=== PATIENT | male | born 1945 | race Caucasian/White ===

== ENCOUNTER 2016-08-02 18:38 | Emergency (ER) | payer MEDICARE, BC ==
[2016-08-02 19:11] VITALS: PULSE 68; RESP 18; TEMP 97.7
[2016-08-02 19:34] LABS: BASOPHILS % (AUTO) 1 % (0-3); EOSINOPHILS % (AUTO) 2 % (0-9); HEMATOCRIT 44 % (39-53); MEAN CORPUSCULAR VOLUME 93 fL (80-100); MONOCYTES % (AUTO) 12.7 % (0-12); NEUTROPHILS % (AUTO) 54.7 % (37-80)
[2016-08-02 22:06] VITALS: BP 149/70; O2SAT 94
== END 2016-08-02 20:21 | disposition home or self-care (01) | DRG 395 ==
LOC: ED 18:38
DX: K64.5 Perianal venous thrombosis (principal)
CPT/HCPCS: 36415; 85025; 99283

== ENCOUNTER 2016-08-03 06:00 | Day surgery (SDC) | payer MEDICARE, BC ==
[2016-08-03] MEDS ORDERED: PROPOFOL 10 MG/ML EMU IV ONE ×2 (06:15→07:25)
[2016-08-03] MEDS ORDERED: ONDANSETRON HCL 4 MG/2 ML SOL ONE ×2 (06:15→07:25)
[2016-08-03] MEDS ORDERED: LIDOCAINE HCL 1% MPF SOL ONE ×2 (06:15→07:25)
[2016-08-03] MEDS ORDERED: FENTANYL 100MCG/2ML SOL ONE (06:16)
[2016-08-03] MEDS ORDERED: MIDAZOLAM 2 MG/2 ML SOL ONE (06:16)
[2016-08-03] MEDS ORDERED: SUCCINYLCHOLINE CHLORIDE 20 MG/ML SOL IV ONE (06:17)
[2016-08-03] MEDS ORDERED: BUPIVACAINE LIPOSOME 20 ML SUS ONE (06:17)
[2016-08-03 06:24] VITALS: BP 129/69; PULSE 65; RESP 22; TEMP 97.6; O2SAT 95
== END 2016-08-03 07:55 | disposition home or self-care (01) | DRG 379 ==
LOC: SURG 06:00
PROVIDERS: ATTEND Surgery
DX: K62.5 Hemorrhage of anus and rectum (principal)
CPT/HCPCS: J0330; J2250; J2405; J3010; J2001; J2704

== ENCOUNTER 2016-10-05 07:23 | Day surgery (SDC) | payer MEDICARE, BC ==
[2016-10-05] MEDS ORDERED: PROPOFOL 500 MG/50 ML EMU IV ONE (07:47)
[2016-10-05] MEDS ORDERED: LIDOCAINE HCL 1% MPF SOL ONE (07:47)
[2016-10-05 08:44] VITALS: PULSE 64
[2016-10-05 08:53] VITALS: BP 114/63; RESP 18; TEMP 97; O2SAT 94
== END 2016-10-05 09:10 | disposition home or self-care (01) | DRG 394 ==
LOC: SURG 07:23
PROVIDERS: ATTEND Surgery
DX: K55.039 Acute (reversible) ischemia of large intestine, extent unspecified (principal); K63.3 Ulcer of intestine; D12.2 Benign neoplasm of ascending colon
CPT/HCPCS: 99001; J2001; J2704

== ENCOUNTER 2017-02-01 17:14 | Emergency (ER) | payer MEDICARE, BC ==
[2017-02-01] MEDS ORDERED: SODIUM CHLORIDE 0.9% FLUSH 10 ML SOL IV PRN (17:48)
[2017-02-01] MEDS ORDERED: NITROGLYCERIN 0.4 MG TAB SL PRN (17:48)
[2017-02-01] MEDS ORDERED: ASPIRIN 81 MG CHEWABLE CTB PO STA (17:48)
[2017-02-01] MEDS ORDERED: ASPIRIN 81 MG CHEWABLE CTB ONE (17:50)
[2017-02-01] MEDS ORDERED: SODIUM CHLORIDE 0.9% 500 ML 500 ML IV ONE (17:53)
[2017-02-01] MEDS ORDERED: KETOROLAC TROMETHAMINE 30 MG/ML SOL IV ONE (17:53)
[2017-02-01 17:59] LABS: BASOPHILS % (AUTO) 1 % (0-3); EOSINOPHILS % (AUTO) 2 % (0-9); HEMATOCRIT 47 % (39-53); MEAN CORPUSCULAR HGB CONC 33.7 gm/dl (32.0-36.0); MONOCYTES % (AUTO) 17.9 % (0-12); NEUTROPHILS % (AUTO) 40.8 % (37-80)
[2017-02-01 18:02] LABS: MEAN CORPUSCULAR VOLUME 100 fL (80-100)
[2017-02-01 18:15] LABS: CALCIUM 8.6 mg/dl (8.5-10.1); GLOM FILT RATE 47 mL/min (>60); POTASSIUM 4.6 mMol/L (3.5-5.1); SODIUM 137 mMol/L (136-145)
[2017-02-01] MEDS ORDERED: KETOROLAC TROMETHAMINE 30 MG/ML SOL ONE (18:24)
[2017-02-01 18:59] VITALS: BP 133/80; PULSE 76; RESP 20; TEMP 98; O2SAT 92
== END 2017-02-01 18:54 | disposition home or self-care (01) | DRG 313 ==
LOC: ED 17:14
DX: R07.89 Other chest pain (principal); E86.0 Dehydration; J06.9 Acute upper respiratory infection, unspecified; M94.0 Chondrocostal junction syndrome [Tietze]
CPT/HCPCS: 36415; 71010; 80048; 82550; 83880; 84484; 85025; 85610; 85730; 93005; 99285; J1885

== ENCOUNTER 2017-02-27 23:36 | Emergency (ER) | payer MEDICARE, BC ==
[2017-02-27 23:51] VITALS: TEMP 97.6
[2017-02-27 23:51] LABS: BASOPHILS % (AUTO) 1 % (0-3); EOSINOPHILS % (AUTO) 2 % (0-9); HEMATOCRIT 44 % (39-53); MEAN CORPUSCULAR HGB CONC 35.3 gm/dl (32.0-36.0); MEAN CORPUSCULAR VOLUME 97 fL (80-100); MONOCYTES % (AUTO) 14.6 % (0-12); NEUTROPHILS % (AUTO) 46.3 % (37-80)
[2017-02-28] LABS: NORMAL RBCS PRESENT
[2017-02-28 00:03] VITALS: BP 124/87; PULSE 87; RESP 18; O2SAT 96
[2017-02-28 00:07] LABS: CALCIUM 8.9 mg/dl (8.5-10.1); GLOM FILT RATE 44 mL/min (>60); POTASSIUM 4.7 mMol/L (3.5-5.1); SODIUM 141 mMol/L (136-145)
[2017-02-28] MEDS ORDERED: FAMOTIDINE 20 MG TAB PO ONE (00:45)
[2017-02-28] MEDS ORDERED: FAMOTIDINE 20 MG TAB ONE (00:47)
== END 2017-02-28 00:56 | disposition home or self-care (01) | DRG 313 ==
LOC: ED 23:36
DX: R07.9 Chest pain, unspecified (principal); K21.9 Gastro-esophageal reflux disease without esophagitis; Z86.69 Personal history of other diseases of the nervous system and sense organs; Z95.1 Presence of aortocoronary bypass graft
CPT/HCPCS: 80048; 82550; 84484; 85025; 85610; 93005; 99283

== ENCOUNTER 2017-03-02 23:33 | Emergency (ER) | payer MEDICARE, BC ==
[2017-03-02] MEDS ORDERED: LIDOCAINE HCL 2% (VISCOUS) 20 ML SOL MT ONE ×2 (23:34→23:56)
[2017-03-02] MEDS ORDERED: ALUMINUM/MAGNESIUM 30 ML SUS PO ONE ×2 (23:34→23:56)
[2017-03-02] MEDS ORDERED: ALUMINUM/MAGNESIUM 30 ML SUS ONE ×2 (23:35→23:59)
[2017-03-02] MEDS ORDERED: LIDOCAINE HCL 2% (VISCOUS) 20 ML SOL ONE (23:35)
[2017-03-02 23:42] VITALS: RESP 18; TEMP 98.5
[2017-03-02] MEDS ORDERED: APAP/HYDROCODONE 325/7.5 TAB PO PRN (23:54)
[2017-03-02] MEDS ORDERED: APAP/HYDROCODONE 325/5 TAB ONE (23:59)
[2017-03-03] MEDS ORDERED: LIDOCAINE HCL 2% (VISCOUS) 20 ML SOL ONE
[2017-03-03] MEDS ORDERED: APAP/HYDROCODONE 325/5 TAB PO ONE (00:03)
[2017-03-03] MEDS ORDERED: NITROGLYCERIN 0.4 MG TAB SL ONE (00:50)
[2017-03-03] MEDS: NITROGLYCERIN 0.4 MG TAB SL PRN ×2 (00:50→00:58)
[2017-03-03 01:15] VITALS: BP 169/156; PULSE 98; O2SAT 100
== END 2017-03-03 01:09 | disposition home or self-care (01) | DRG 392 ==
LOC: ED 23:33
DX: K21.9 Gastro-esophageal reflux disease without esophagitis (principal); Z95.1 Presence of aortocoronary bypass graft
CPT/HCPCS: 93005; 99283; 99284; A9270-GY

== ENCOUNTER 2017-03-07 19:47 | Emergency (ER) | payer MEDICARE, BC ==
[2017-03-07] MEDS ORDERED: ALTEPLASE, RECOMBINANT 50 MG PDS IV ONE ×3 (20:08→20:12)
[2017-03-07] MEDS ORDERED: SODIUM CHLORIDE 0.9% FLUSH 10 ML SOL IV PRN (20:12)
[2017-03-07] MEDS ORDERED: ONDANSETRON HCL 4 MG/2 ML SOL IV ONE (20:18)
[2017-03-07] MEDS ORDERED: ONDANSETRON HCL 4 MG/2 ML SOL ONE (20:19)
[2017-03-07 20:24] LABS: CALCIUM 8.6 mg/dl (8.5-10.1); POTASSIUM 4.8 mMol/L (3.5-5.1)
[2017-03-07 20:25] LABS: APPEARANCE,URINE Clear; BILIRUBIN,URINE NEGATIVE (NEGATIVE); COLOR,URINE Yellow; GLUCOSE, URINE (UA) NEGATIVE (NEGATIVE); KETONES,URINE NEGATIVE (NEGATIVE); LEUKOCYTE ESTERASE ,URINE NEGATIVE (NEGATIVE); NITRATE,URINE NEGATIVE (NEGATIVE); OCCULT BLOOD,URINE NEGATIVE (NEG-TRACE); UROBILINOGEN,URINE 0.2 (0.2-1.0 EU)
[2017-03-07 20:28] LABS: BASOPHILS % (AUTO) 1 % (0-3); EOSINOPHILS % (AUTO) 2 % (0-9); HEMATOCRIT 45 % (39-53); MEAN CORPUSCULAR HGB CONC 34.6 gm/dl (32.0-36.0); MEAN CORPUSCULAR VOLUME 95 fL (80-100); MONOCYTES % (AUTO) 16.2 % (0-12); NEUTROPHILS % (AUTO) 40.8 % (37-80)
[2017-03-07] MEDS ORDERED: SODIUM CHLORIDE 0.9% 1000ML 1,000 ML IV SCH ×2 (20:30→21:17)
[2017-03-07 20:52] LABS: RBC,URINE 0-1 (0-3AV/HPF); WBC,URINE 0-2 (0-5AV/HPF)
[2017-03-07 20:56] VITALS: RESP 22; TEMP 98.4
[2017-03-07 21:23] VITALS: PULSE 98; O2SAT 94
[2017-03-07 21:41] VITALS: BP 106/64
== END 2017-03-07 21:36 | disposition short-term general hospital (02) | DRG 65 ==
LOC: ED 19:47
DX: I63.9 Cerebral infarction, unspecified (principal); G81.91 Hemiplegia, unspecified affecting right dominant side; F03.90 Unspecified dementia, unspecified severity, without behavioral disturbance, psychotic disturbance, mood disturbance, and anxiety; R47.01 Aphasia; R29.810 Facial weakness; R47.81 Slurred speech; R29.718 NIHSS score 18; R40.2362 Coma scale, best motor response, obeys commands, at arrival to emergency department; R40.2142 Coma scale, eyes open, spontaneous, at arrival to emergency department; R40.2242 Coma scale, best verbal response, confused conversation, at arrival to emergency department
CPT/HCPCS: 70450; 80048; 81001; 85025; 85610; 85730; 93005; 99291; J2405; J2997

== ENCOUNTER 2017-03-17 11:17 | Inpatient (IN) | payer MEDICARE, BC ==
[2017-03-17 11:51] LABS: BASOPHILS % (AUTO) 1 % (0-3); EOSINOPHILS % (AUTO) 0 % (0-9); HEMATOCRIT 42 % (39-53); MEAN CORPUSCULAR HGB CONC 33.3 gm/dl (32.0-36.0); MEAN CORPUSCULAR VOLUME 98 fL (80-100); MONOCYTES % (AUTO) 11.2 % (0-12); NEUTROPHILS % (AUTO) 75.5 % (37-80)
[2017-03-17 12:06] LABS: ALBUMIN 2.7 gm/dl (3.4-5.0); POTASSIUM 4.4 mMol/L (3.5-5.1)
[2017-03-17] MEDS ORDERED: ALBUTEROL/IPRATROPIUM 1 VIAL SOL INH ONE (12:08)
[2017-03-17] MEDS ORDERED: SODIUM CHLORIDE 0.9% 500 ML 500 ML IV ONE (12:11)
[2017-03-17] MEDS ORDERED: SODIUM CHLORIDE 0.9% 1000ML 1,000 ML IV SCH (12:15)
[2017-03-17] MEDS ORDERED: ALBUTEROL/IPRATROPIUM 1 VIAL SOL ONE (12:29)
[2017-03-17] MEDS: SODIUM CHLORIDE 0.9% FLUSH 10 ML SOL IV PRN (13:00)
[2017-03-17 13:01] LABS: APPEARANCE,URINE Slightly Cloudy; BILIRUBIN,URINE NEGATIVE (NEGATIVE); COLOR,URINE Yellow; GLUCOSE, URINE (UA) NEGATIVE (NEGATIVE); KETONES,URINE NEGATIVE (NEGATIVE); LEUKOCYTE ESTERASE ,URINE NEGATIVE (NEGATIVE); NITRATE,URINE NEGATIVE (NEGATIVE); OCCULT BLOOD,URINE 2+ (NEG-TRACE); PH,URINE 5.5
[2017-03-17 13:20] LABS: RBC,URINE 20-25 (0-3AV/HPF); WBC,URINE 0-2 (0-5AV/HPF)
[2017-03-17] MEDS ORDERED: CLINDAMYCIN 150 MG/ML SOL IV ONE (13:44)
[2017-03-17] MEDS ORDERED: LEVOFLOXACIN 25 MG/ML 750 MG in SODIUM CHLORIDE 0.9% 250 ML 150 ML IV ONE (14:07)
[2017-03-17] MEDS ORDERED: CLINDAMYCIN 150 MG/ML 600 MG in SODIUM CHLORIDE 0.9% 100 ML 100 ML IV SCH (14:45)
[2017-03-17] MEDS: SODIUM CHLORIDE 0.9% 1000ML 1,000 ML IV SCH ×2 (15:30→23:25)
[2017-03-17] MEDS ORDERED: SODIUM CHLORIDE 0.9% 250 ML 250 ML IV ONE (16:15)
[2017-03-17] MEDS ORDERED: LEVOFLOXACIN 25 MG/ML SOL IV ONE (16:15)
[2017-03-17] MEDS: LEVOFLOXACIN 25 MG/ML 750 MG in SODIUM CHLORIDE 0.9% 250 ML 150 ML IV SCH (17:14)
[2017-03-17] MEDS: ENOXAPARIN 40 MG SOL SC SCH (17:17)
[2017-03-17] MEDS: ALBUTEROL/IPRATROPIUM 1 VIAL SOL INH SCH ×2 (17:21→21:45)
[2017-03-17] MEDS ORDERED: ALBUTEROL/IPRATROPIUM 1 VIAL SOL INH PRN (18:43)
[2017-03-17] MEDS: ALBUTEROL NEB SOL 2.5MG/3ML 1 VIAL SOL NEB PRN (19:46)
[2017-03-17] MEDS ORDERED: RANITIDINE HCL 150 MG TAB PO SCH (21:00)
[2017-03-17] MEDS ORDERED: SCOPOLAMINE 1.5MG PATCH TD SCH (21:00)
[2017-03-17] MEDS ORDERED: FAMOTIDINE 20 MG TAB PO SCH (21:00)
[2017-03-17] MEDS ORDERED: TAMSULOSIN HYDROCHLORIDE 0.4 MG CAP PO SCH (21:00)
[2017-03-17] MEDS ORDERED: DIVALPROEX 250 MG TCP PO SCH (21:00)
[2017-03-17] MEDS ORDERED: DIVALPROEX 250 MG TAB.ER.24H PO ONE (21:25)
[2017-03-17] MEDS: QUETIAPINE FUMARATE 25 MG TAB PO SCH (21:50)
[2017-03-17] MEDS: AMIODARONE 200 MG TAB PO SCH (21:55)
[2017-03-18] MEDS ORDERED: CLINDAMYCIN 150 MG/ML 600 MG in SODIUM CHLORIDE 0.9% 100 ML 100 ML IV SCH
[2017-03-18] MEDS: SODIUM CHLORIDE 0.9% 1000ML 1,000 ML IV SCH ×2 (02:57→10:33)
[2017-03-18] MEDS ORDERED: LORAZEPAM 2 MG/ML SOL ONE ×5 (03:40→23:06)
[2017-03-18] MEDS: LORAZEPAM 2 MG/ML 10ML MDV 2 MG/ML VIAL IV PRN ×3 (03:43→23:12)
[2017-03-18] MEDS: ALBUTEROL NEB SOL 2.5MG/3ML 1 VIAL SOL NEB PRN (04:01)
[2017-03-18] MEDS: ENOXAPARIN 40 MG SOL SC SCH ×2 (05:11→17:40)
[2017-03-18] MEDS ORDERED: LORAZEPAM 2 MG/ML 10ML MDV 2 MG/ML VIAL IV ONE (05:30)
[2017-03-18] MEDS: ACETAMINOPHEN 650 MG SUP PR PRN ×2 (05:33→21:28)
[2017-03-18] MEDS ORDERED: OLANZAPINE 5 MG PO SCH (08:30)
[2017-03-18] MEDS ORDERED: OLANZAPINE 2.5 MG TAB ONE (08:43)
[2017-03-18] MEDS: OLANZAPINE 2.5 MG TAB PO PRN ×2 (08:55→21:28)
[2017-03-18] MEDS ORDERED: MEMANTINE HYDROCHLORIDE 10 MG TAB PO SCH (09:00)
[2017-03-18] MEDS ORDERED: FAMOTIDINE 20 MG TAB PO SCH (09:00)
[2017-03-18] MEDS ORDERED: ASPIRIN EC 81 MG PO SCH (09:00)
[2017-03-18] MEDS ORDERED: DIVALPROEX SODIUM PO SCH (09:00)
[2017-03-18] MEDS ORDERED: CLOPIDOGREL 75 MG TAB PO SCH (09:00)
[2017-03-18] MEDS ORDERED: PRAMIPEXOLE DIHYDROCHLORIDE 0.125 MG PO PRN (09:00)
[2017-03-18] MEDS ORDERED: DIVALPROEX 250 MG PO SCH (09:00)
[2017-03-18] MEDS ORDERED: PANTOPRAZOLE SODIUM 40 MG ECT PO SCH (09:00)
[2017-03-18] MEDS ORDERED: OMEPRAZOLE 20 MG CAPSULE PO SCH (09:00)
[2017-03-18 10:05] LABS: BASOPHILS % (AUTO) 1 % (0-3); EOSINOPHILS % (AUTO) 0 % (0-9); HEMATOCRIT 35 % (39-53); MEAN CORPUSCULAR HGB CONC 33.9 gm/dl (32.0-36.0); MONOCYTES % (AUTO) 14.2 % (0-12); NEUTROPHILS % (AUTO) 74.7 % (37-80)
[2017-03-18 10:07] LABS: MEAN CORPUSCULAR VOLUME 99 fL (80-100)
[2017-03-18 10:20] LABS: CALCIUM 8.6 mg/dl (8.5-10.1)
[2017-03-18] MEDS: CARBIDOPA/LEVODOPA 25/100 TAB PO SCH ×4 (10:23→21:26)
[2017-03-18] MEDS: DIVALPROEX ECC 125 MG ECC PO SCH ×2 (10:24→21:29)
[2017-03-18] MEDS: METOPROLOL SUCCINATE 25 MG TAB.ER.24H PO SCH (10:25)
[2017-03-18] MEDS: ALBUTEROL/IPRATROPIUM 1 VIAL SOL INH SCH ×4 (10:27→21:11)
[2017-03-18] MEDS: PANTOPRAZOLE SODIUM 40 MG/10 ML PDS IV SCH (10:42)
[2017-03-18] MEDS: DEXTROSE/SALINE 0.45/KCL 20MEQ 1,000 ML/1,000 ML SOL IV SCH ×2 (12:14→22:34)
[2017-03-18] MEDS: AMIODARONE 200 MG TAB PO SCH (14:03)
[2017-03-18] MEDS: QUETIAPINE FUMARATE 25 MG TAB PO SCH (21:30)
[2017-03-19] MEDS: ENOXAPARIN 40 MG SOL SC SCH ×2 (06:20→17:33)
[2017-03-19 08:31] LABS: CALCIUM 8.4 mg/dl (8.5-10.1); POTASSIUM 3.7 mMol/L (3.5-5.1)
[2017-03-19 08:34] LABS: BASOPHILS % (AUTO) 1 % (0-3); EOSINOPHILS % (AUTO) 3 % (0-9); HEMATOCRIT 36 % (39-53); MEAN CORPUSCULAR HGB CONC 33.6 gm/dl (32.0-36.0); MONOCYTES % (AUTO) 12.6 % (0-12); NEUTROPHILS % (AUTO) 72.3 % (37-80)
[2017-03-19 08:36] LABS: MEAN CORPUSCULAR VOLUME 100 fL (80-100)
[2017-03-19] MEDS ORDERED: DEXTROSE/SALINE 0.45/KCL 20MEQ 1,000 ML/1,000 ML SOL IV SCH (09:15)
[2017-03-19] MEDS: CARBIDOPA/LEVODOPA 25/100 TAB PO SCH ×4 (09:33→21:29)
[2017-03-19] MEDS: DIVALPROEX ECC 125 MG ECC PO SCH ×2 (09:56→20:25)
[2017-03-19] MEDS: METOPROLOL SUCCINATE 25 MG TAB.ER.24H PO SCH (09:57)
[2017-03-19] MEDS: PANTOPRAZOLE SODIUM 40 MG/10 ML PDS IV SCH (10:04)
[2017-03-19] MEDS: ALBUTEROL/IPRATROPIUM 1 VIAL SOL INH SCH ×4 (10:04→20:41)
[2017-03-19] MEDS ORDERED: POTASSIUM CHLORIDE 2 MEQ/ML 20 MEQ, LIDOCAINE HCL 1% MDV 2 ML in SODIUM CHLORIDE 0.9% 2... IV ONE (11:14)
[2017-03-19] MEDS ORDERED: FUROSEMIDE 40 MG SOL IV SCH (11:15)
[2017-03-19] MEDS ORDERED: POTASSIUM CHLORIDE 2 MEQ/ML SOL IV ONE (11:29)
[2017-03-19] MEDS ORDERED: LIDOCAINE HCL 1% MPF SOL ONE (11:32)
[2017-03-19] MEDS: DEXTROSE/SALINE 0.45/KCL 20MEQ 1,000 ML/1,000 ML SOL IV SCH (11:40)
[2017-03-19] MEDS: SODIUM CHLORIDE 0.9% FLUSH 10 ML SOL IV PRN (11:44)
[2017-03-19] MEDS: LEVOFLOXACIN 25 MG/ML 750 MG in SODIUM CHLORIDE 0.9% 250 ML 150 ML IV SCH (17:37)
[2017-03-19] MEDS: QUETIAPINE FUMARATE 25 MG TAB PO SCH (20:23)
[2017-03-19] MEDS: OLANZAPINE 2.5 MG TAB PO PRN (21:29)
[2017-03-20] MEDS: ENOXAPARIN 40 MG SOL SC SCH ×2 (05:39→17:18)
[2017-03-20 07:27] LABS: CALCIUM 8.4 mg/dl (8.5-10.1); POTASSIUM 4.1 mMol/L (3.5-5.1)
[2017-03-20] MEDS: DEXTROSE/SALINE 0.45/KCL 20MEQ 1,000 ML/1,000 ML SOL IV SCH (07:52)
[2017-03-20] MEDS ORDERED: ACETAMINOPHEN 500 MG 500 MG TAB PO PRN (08:49)
[2017-03-20] MEDS ORDERED: FUROSEMIDE 20mg SOL IV ONE (09:00)
[2017-03-20] MEDS: ALBUTEROL/IPRATROPIUM 1 VIAL SOL INH SCH ×4 (09:54→20:54)
[2017-03-20] MEDS: DIVALPROEX ECC 125 MG ECC PO SCH ×2 (09:55→21:06)
[2017-03-20] MEDS: CARBIDOPA/LEVODOPA 25/100 TAB PO SCH ×4 (09:55→21:06)
[2017-03-20] MEDS: METOPROLOL SUCCINATE 25 MG TAB.ER.24H PO SCH (09:55)
[2017-03-20] MEDS: ESOMEPRAZOLE SODIUM 40 MG VIAL IV SCH (10:01)
[2017-03-20] MEDS: PANTOPRAZOLE SODIUM 40 MG/10 ML PDS IV SCH (11:08)
[2017-03-20] MEDS: QUETIAPINE FUMARATE 25 MG TAB PO SCH (21:07)
[2017-03-21] MEDS: DEXTROSE/SALINE 0.45/KCL 20MEQ 1,000 ML/1,000 ML SOL IV SCH (03:54)
[2017-03-21] MEDS: ENOXAPARIN 40 MG SOL SC SCH ×2 (05:48→18:32)
[2017-03-21 07:59] LABS: BASOPHILS % (AUTO) 1 % (0-3); EOSINOPHILS % (AUTO) 3 % (0-9); HEMATOCRIT 38 % (39-53); MEAN CORPUSCULAR HGB CONC 34.5 gm/dl (32.0-36.0); MEAN CORPUSCULAR VOLUME 97 fL (80-100); MONOCYTES % (AUTO) 9.8 % (0-12); NEUTROPHILS % (AUTO) 68.1 % (37-80)
[2017-03-21 08:17] LABS: ALBUMIN 2.2 gm/dl (3.4-5.0); CALCIUM 8.1 mg/dl (8.5-10.1); POTASSIUM 4.5 mMol/L (3.5-5.1)
[2017-03-21] MEDS: CARBIDOPA/LEVODOPA 25/100 TAB PO SCH ×4 (09:11→20:25)
[2017-03-21] MEDS: DIVALPROEX ECC 125 MG ECC PO SCH ×2 (09:12→20:25)
[2017-03-21] MEDS: ESOMEPRAZOLE SODIUM 40 MG VIAL IV SCH (09:14)
[2017-03-21] MEDS: METOPROLOL TARTRATE 25 MG TAB PO SCH ×2 (09:15→20:25)
[2017-03-21] MEDS: ALBUTEROL/IPRATROPIUM 1 VIAL SOL INH SCH ×4 (09:29→20:35)
[2017-03-21] MEDS ORDERED: SODIUM CHLORIDE 0.9% 500 ML 500 ML IV ONE (15:58)
[2017-03-21] MEDS ORDERED: LEVOFLOXACIN 750MG/150 ML (PREMIX) IV SCH (17:00)
[2017-03-21] MEDS: QUETIAPINE FUMARATE 25 MG TAB PO SCH (20:25)
[2017-03-22] MEDS: DEXTROSE/SALINE 0.45/KCL 20MEQ 1,000 ML/1,000 ML SOL IV SCH (03:40)
[2017-03-22] MEDS: ENOXAPARIN 40 MG SOL SC SCH ×2 (05:25→17:22)
[2017-03-22] MEDS ORDERED: LEVOFLOXACIN 500 MG TAB PO SCH (09:15)
[2017-03-22] MEDS: CARBIDOPA/LEVODOPA 25/100 TAB PO SCH ×4 (09:23→20:22)
[2017-03-22] MEDS: DIVALPROEX ECC 125 MG ECC PO SCH ×2 (09:29→20:27)
[2017-03-22] MEDS: METOPROLOL TARTRATE 25 MG TAB PO SCH ×2 (09:34→20:28)
[2017-03-22 09:50] LABS: BASOPHILS % (AUTO) 1 % (0-3); EOSINOPHILS % (AUTO) 4 % (0-9); HEMATOCRIT 39 % (39-53); MEAN CORPUSCULAR HGB CONC 33.5 gm/dl (32.0-36.0); MEAN CORPUSCULAR VOLUME 99 fL (80-100); MONOCYTES % (AUTO) 8.3 % (0-12); NEUTROPHILS % (AUTO) 69.8 % (37-80)
[2017-03-22] MEDS: ALBUTEROL/IPRATROPIUM 1 VIAL SOL INH SCH ×4 (09:52→20:11)
[2017-03-22 10:11] LABS: CALCIUM 8.5 mg/dl (8.5-10.1); POTASSIUM 4.3 mMol/L (3.5-5.1)
[2017-03-22] MEDS: ESOMEPRAZOLE SODIUM 40 MG VIAL IV SCH (14:37)
[2017-03-22] MEDS: SODIUM CHLORIDE 0.9% FLUSH 10 ML SOL IV PRN (20:11)
[2017-03-22] MEDS: QUETIAPINE FUMARATE 25 MG TAB PO SCH (20:21)
[2017-03-23] MEDS: ENOXAPARIN 40 MG SOL SC SCH (04:57)
[2017-03-23] MEDS ORDERED: OMEPRAZOLE 20 MG CAPSULE PO SCH (07:00)
[2017-03-23 07:33] LABS: BASOPHILS % (AUTO) 1 % (0-3); EOSINOPHILS % (AUTO) 4 % (0-9); HEMATOCRIT 39 % (39-53); MEAN CORPUSCULAR HGB CONC 33.7 gm/dl (32.0-36.0); MEAN CORPUSCULAR VOLUME 97 fL (80-100); MONOCYTES % (AUTO) 10.4 % (0-12); NEUTROPHILS % (AUTO) 64.9 % (37-80)
[2017-03-23 08:16] LABS: CALCIUM 8.5 mg/dl (8.5-10.1); POTASSIUM 4.2 mMol/L (3.5-5.1)
[2017-03-23] MEDS ORDERED: PANTOPRAZOLE SODIUM 40 MG ECT PO SCH (09:00)
[2017-03-23] MEDS: CARBIDOPA/LEVODOPA 25/100 TAB PO SCH (09:07)
[2017-03-23] MEDS: DIVALPROEX ECC 125 MG ECC PO SCH (09:12)
[2017-03-23] MEDS: METOPROLOL TARTRATE 25 MG TAB PO SCH (09:15)
[2017-03-23] MEDS: ALBUTEROL/IPRATROPIUM 1 VIAL SOL INH SCH (09:17)
[2017-03-23 09:19] VITALS: PULSE 70
[2017-03-23 09:39] VITALS: RESP 18; O2SAT 96
[2017-03-23] MEDS ORDERED: PNEUMOC 13-VAL CONJ-DIP CRM/PF 0.5 ML SYRINGE IM ONE (09:51)
[2017-03-23 10:54] VITALS: BP 117/74; TEMP 97.4
== END 2017-03-23 10:00 | DRG 178 ==
LOC: ED 11:17 → ACUTE CARE 14:33 → UNDOADMIN 14:33 → ACUTE CARE 14:55
PROVIDERS: ADMIT Family Medicine; ATTEND Family Medicine
DX: J69.0 Pneumonitis due to inhalation of food and vomit (principal); L03.113 Cellulitis of right upper limb; E86.0 Dehydration; I69.320 Aphasia following cerebral infarction; I69.322 Dysarthria following cerebral infarction; N28.9 Disorder of kidney and ureter, unspecified; G20 Parkinson's disease; I50.9 Heart failure, unspecified; I69.391 Dysphagia following cerebral infarction; R79.89 Other specified abnormal findings of blood chemistry; R13.10 Dysphagia, unspecified; I49.9 Cardiac arrhythmia, unspecified; K21.9 Gastro-esophageal reflux disease without esophagitis; R45.1 Restlessness and agitation
CPT/HCPCS: 36415; 71045; 71046; 71250; 74176; 80048; 80053; 81001; 83880; 84132; 85025; 87040; 87088; 87804; 90670; 93306; 94640; 94669; 94762; 96365; 96366; 99070; 99284; 99285; J1650; J1940; J1956; J2060; J3480; J3490; J7603; J7620; A9270-GY; G0008; J2001

== ENCOUNTER 2017-07-04 13:52 | Inpatient (IN) | payer MEDICARE, BC, MEDICAID ==
[2017-07-04] MEDS: SODIUM CHLORIDE 0.9% FLUSH 10 ML SOL IV SCH ×2 (15:04→22:25)
[2017-07-04] MEDS: FUROSEMIDE 40 MG SOL IV SCH ×2 (15:05→21:41)
[2017-07-04] MEDS: LEVOFLOXACIN 500 MG (PREMIX) 500 MG/100 ML SOL IV SCH (15:06)
[2017-07-04] MEDS ORDERED: ALBUTEROL NEB SOL 2.5MG/3ML 1 VIAL SOL NEB PRN (15:56)
[2017-07-04] MEDS ORDERED: NYSTATIN TOP PRN (16:57)
[2017-07-04] MEDS ORDERED: LORATADINE 10 MG TAB PO PRN (16:57)
[2017-07-04] MEDS ORDERED: PROCHLORPERAZINE 25 MG PR PRN (16:57)
[2017-07-04] MEDS ORDERED: BISACODYL 10 MG SUP PR PRN (16:57)
[2017-07-04] MEDS ORDERED: MAGNESIUM HYDROXIDE 30 ML SUS PO PRN (16:57)
[2017-07-04] MEDS ORDERED: NITROGLYCERIN 0.4 MG TAB SL PRN (16:57)
[2017-07-04] MEDS ORDERED: PRAMIPEXOLE 0.125 MG PO PRN (16:57)
[2017-07-04] MEDS ORDERED: ALBUTEROL/IPRATROPIUM 1 VIAL SOL INH PRN (16:57)
[2017-07-04] MEDS ORDERED: ACETAMINOPHEN 500 MG 500 MG TAB PO PRN (16:57)
[2017-07-04] MEDS ORDERED: CARBIDOPA LEVODOPA PO SCH (17:00)
[2017-07-04] MEDS ORDERED: PRAMIPEXOLE DIHYDROCHLORIDE 0.125 MG PO PRN (19:00)
[2017-07-04] MEDS: MEMANTINE HYDROCHLORIDE 10 MG TAB PO SCH (20:40)
[2017-07-04] MEDS: DIVALPROEX ECC 125 MG ECC PO SCH (20:40)
[2017-07-04] MEDS: CARBIDOPA/LEVODOPA 25/100 TAB PO SCH (20:40)
[2017-07-04] MEDS: FAMOTIDINE 20 MG TAB PO SCH (20:40)
[2017-07-04] MEDS: QUETIAPINE FUMARATE 25 MG TAB PO SCH (20:41)
[2017-07-04] MEDS: SERTRALINE HYDROCHLORIDE 50 MG TAB PO SCH (20:41)
[2017-07-04] MEDS: METOPROLOL SUCCINATE 25 MG TAB.ER.24H PO SCH ×2 (20:48→21:08)
[2017-07-04] MEDS ORDERED: QUETIAPINE FUMARATE 12.5 MG PO SCH (21:00)
[2017-07-04] MEDS ORDERED: FUROSEMIDE 20mg SOL IV SCH (22:00)
[2017-07-05] MEDS: SODIUM CHLORIDE 0.9% FLUSH 10 ML SOL IV SCH ×5 (06:47→22:43)
[2017-07-05 07:34] LABS: BASOPHILS % (AUTO) 1 % (0-3); EOSINOPHILS % (AUTO) 2 % (0-9); HEMATOCRIT 47 % (39-53); HEMOGLOBIN 15.8 gm/dl (13.5-17.7); LYMPHOCYTES % (AUTO) 11.8 % (10-50); MEAN CORPUSCULAR HEMOGLOBIN 32.1 pg (27.0-32.0); MEAN CORPUSCULAR HGB CONC 33.6 gm/dl (32.0-36.0); MEAN CORPUSCULAR VOLUME 96 fL (80-100); MONOCYTES % (AUTO) 14.1 % (0-12); NEUTROPHILS % (AUTO) 71.9 % (37-80)
[2017-07-05 07:41] LABS: BLOOD UREA NITROGEN 19 mg/dl (7-18); CALCIUM 8.3 mg/dl (8.5-10.1); CARBON DIOXIDE 30.4 mEq/L (21-32); CHLORIDE 99 mMol/L (98-107); CREATININE 1.21 mg/dl (0.80-1.30); GLOM FILT RATE 59 mL/min (>60); GLUCOSE 88 mg/dl (74-106); POTASSIUM 3.8 mMol/L (3.5-5.1); SODIUM 134 mMol/L (136-145); TROP I < 0.017 ng/ml (0.000-0.056)
[2017-07-05] MEDS ORDERED: ASPIRIN EC 81 MG PO SCH (09:00)
[2017-07-05] MEDS: DIVALPROEX ECC 125 MG ECC PO SCH ×2 (09:36→20:03)
[2017-07-05] MEDS: CARBIDOPA/LEVODOPA 25/100 TAB PO SCH ×4 (09:36→20:02)
[2017-07-05] MEDS: MEMANTINE HYDROCHLORIDE 10 MG TAB PO SCH ×2 (09:37→20:04)
[2017-07-05] MEDS: FUROSEMIDE 40 MG SOL IV SCH ×2 (09:37→20:01)
[2017-07-05] MEDS: FAMOTIDINE 20 MG TAB PO SCH ×2 (09:38→20:02)
[2017-07-05] MEDS: PANTOPRAZOLE SODIUM 40 MG ECT PO SCH (09:38)
[2017-07-05] MEDS: CLOPIDOGREL 75 MG TAB PO SCH (09:38)
[2017-07-05] MEDS: ASPIRIN 81 MG CHEWABLE CTB PO SCH (09:47)
[2017-07-05] MEDS: ENOXAPARIN 40 MG SOL SC SCH (10:13)
[2017-07-05] MEDS: LEVOFLOXACIN 500 MG (PREMIX) 500 MG/100 ML SOL IV SCH (15:14)
[2017-07-05 16:21] LABS: CALCIUM 8.4 mg/dl (8.5-10.1); CREATININE 1.36 mg/dl (0.80-1.30)
[2017-07-05 16:27] LABS: CARBON DIOXIDE 31.3 mEq/L (21-32)
[2017-07-05] MEDS: SERTRALINE HYDROCHLORIDE 50 MG TAB PO SCH (20:01)
[2017-07-05] MEDS: QUETIAPINE FUMARATE 25 MG TAB PO SCH (20:02)
[2017-07-05] MEDS: METOPROLOL SUCCINATE 25 MG TAB.ER.24H PO SCH (20:04)
[2017-07-06] MEDS: SODIUM CHLORIDE 0.9% FLUSH 10 ML SOL IV SCH ×2 (06:04→15:14)
[2017-07-06 07:10] LABS: CALCIUM 8.7 mg/dl (8.5-10.1); CARBON DIOXIDE 30.9 mEq/L (21-32); CREATININE 1.33 mg/dl (0.80-1.30)
[2017-07-06 07:12] LABS: BASOPHILS % (AUTO) 1 % (0-3); EOSINOPHILS % (AUTO) 1 % (0-9); HEMATOCRIT 48 % (39-53); HEMOGLOBIN 16.7 gm/dl (13.5-17.7); LYMPHOCYTES % (AUTO) 10.3 % (10-50); MEAN CORPUSCULAR HEMOGLOBIN 33.5 pg (27.0-32.0); MEAN CORPUSCULAR HGB CONC 35.1 gm/dl (32.0-36.0); MEAN CORPUSCULAR VOLUME 95 fL (80-100); MONOCYTES % (AUTO) 14.4 % (0-12); NEUTROPHILS % (AUTO) 72.8 % (37-80)
[2017-07-06] MEDS: ASPIRIN 81 MG CHEWABLE CTB PO SCH (09:20)
[2017-07-06] MEDS: DIVALPROEX ECC 125 MG ECC PO SCH ×2 (09:21→20:25)
[2017-07-06] MEDS: CARBIDOPA/LEVODOPA 25/100 TAB PO SCH ×4 (09:21→20:23)
[2017-07-06] MEDS: FUROSEMIDE 20 MG TAB PO SCH (09:21)
[2017-07-06] MEDS: MEMANTINE HYDROCHLORIDE 10 MG TAB PO SCH ×2 (09:21→20:24)
[2017-07-06] MEDS: CLOPIDOGREL 75 MG TAB PO SCH (09:22)
[2017-07-06] MEDS: PANTOPRAZOLE SODIUM 40 MG ECT PO SCH (09:22)
[2017-07-06] MEDS: FAMOTIDINE 20 MG TAB PO SCH ×2 (09:22→20:25)
[2017-07-06] MEDS: ENOXAPARIN 40 MG SOL SC SCH (09:33)
[2017-07-06] MEDS: METOPROLOL SUCCINATE 25 MG TAB.ER.24H PO SCH (20:23)
[2017-07-06] MEDS: QUETIAPINE FUMARATE 25 MG TAB PO SCH (20:27)
[2017-07-06] MEDS: SERTRALINE HYDROCHLORIDE 50 MG TAB PO SCH (20:30)
[2017-07-07] MEDS: SODIUM CHLORIDE 0.9% FLUSH 10 ML SOL IV SCH ×2 (01:16→07:15)
[2017-07-07 01:19] VITALS: RESP 20
[2017-07-07 07:21] LABS: CALCIUM 8.5 mg/dl (8.5-10.1); CARBON DIOXIDE 28.9 mEq/L (21-32); CREATININE 1.3 mg/dl (0.80-1.30); POTASSIUM 4.2 mMol/L (3.5-5.1)
[2017-07-07 07:41] VITALS: BP 113/67; PULSE 73; TEMP 97.7; O2SAT 94
[2017-07-07] MEDS ORDERED: GUAIFENESIN 200 MG/10 ML SOL PO PRN (08:26)
[2017-07-07 09:06] LABS: BASOPHILS % (AUTO) 1 % (0-3); EOSINOPHILS % (AUTO) 2 % (0-9); HEMATOCRIT 46 % (39-53); HEMOGLOBIN 15.4 gm/dl (13.5-17.7); LYMPHOCYTES % (AUTO) 17.7 % (10-50); MEAN CORPUSCULAR HEMOGLOBIN 31.7 pg (27.0-32.0); MEAN CORPUSCULAR HGB CONC 33.3 gm/dl (32.0-36.0); MEAN CORPUSCULAR VOLUME 95 fL (80-100); MONOCYTES % (AUTO) 15.7 % (0-12); NEUTROPHILS % (AUTO) 63.5 % (37-80)
[2017-07-07] MEDS: ASPIRIN 81 MG CHEWABLE CTB PO SCH (09:44)
[2017-07-07] MEDS: CLOPIDOGREL 75 MG TAB PO SCH (09:44)
[2017-07-07] MEDS: CARBIDOPA/LEVODOPA 25/100 TAB PO SCH (09:45)
[2017-07-07] MEDS: FUROSEMIDE 20 MG TAB PO SCH (09:45)
[2017-07-07] MEDS: FAMOTIDINE 20 MG TAB PO SCH (09:45)
[2017-07-07] MEDS: PANTOPRAZOLE SODIUM 40 MG ECT PO SCH (09:45)
[2017-07-07] MEDS: DIVALPROEX ECC 125 MG ECC PO SCH (09:45)
[2017-07-07] MEDS: MEMANTINE HYDROCHLORIDE 10 MG TAB PO SCH (09:45)
[2017-07-07] MEDS: ENOXAPARIN 40 MG SOL SC SCH (10:09)
== END 2017-07-07 11:39 | DRG 195 ==
LOC: ACUTE CARE 14:07
PROVIDERS: ADMIT Family Medicine; ATTEND Family Medicine
DX: J18.1 Lobar pneumonia, unspecified organism (principal); G20 Parkinson's disease; I50.9 Heart failure, unspecified; N28.9 Disorder of kidney and ureter, unspecified; R05 Cough; R06.02 Shortness of breath; G40.909 Epilepsy, unspecified, not intractable, without status epilepticus; F02.80 Dementia in other diseases classified elsewhere, unspecified severity, without behavioral disturbance, psychotic disturbance, mood disturbance, and anxiety
CPT/HCPCS: 36415; 71045; 80048; 83880; 84484; 85025; 94150; 94760; 94762; J1650; J1940; J1956; A9270-GY

== ENCOUNTER 2017-09-19 09:35 | Inpatient (IN) | payer BC, MEDICARE, OTHER ==
[2017-09-19] MEDS ORDERED: ALBUTEROL/IPRATROPIUM 1 VIAL SOL INH ONE (10:22)
[2017-09-19] MEDS ORDERED: ALBUTEROL/IPRATROPIUM 1 VIAL SOL ONE (10:23)
[2017-09-19] MEDS ORDERED: SODIUM CHLORIDE 0.9% 500 ML 500 ML IV ONE ×2 (10:28→11:51)
[2017-09-19] MEDS ORDERED: ACETAMINOPHEN 325 MG PO ONE (10:30)
[2017-09-19 10:34] LABS: HEMATOCRIT 52 % (39-53); HEMOGLOBIN 16.3 gm/dl (13.5-17.7); MEAN CORPUSCULAR HGB CONC 31.3 gm/dl (32.0-36.0)
[2017-09-19 10:37] LABS: MEAN CORPUSCULAR VOLUME 99 fL (80-100)
[2017-09-19 10:38] LABS: BILIRUBIN,TOTAL 1.2 mg/dl (0.2-1.0); CALCIUM 9.4 mg/dl (8.5-10.1); CARBON DIOXIDE 36.3 mEq/L (21-32); CREATININE 2.56 mg/dl (0.80-1.30); TOTAL PROTEIN 8.5 gm/dl (6.4-8.2)
[2017-09-19 10:52] LABS: INR 1.3 (0.86-1.12)
[2017-09-19 10:58] LABS: LACTIC ACID 2.4 mMol/L (0.0-2.0)
[2017-09-19 10:59] LABS: BAND NEUTROPHILS % (MANUAL) 15 %; BASOPHILS % (MANUAL) 0 % (0-3); EOSINOPHILS % (MANUAL) 0 % (0-9); LYMPHOCYTES % (MANUAL) 11 % (10-50); MONOCYTES % (MANUAL) 7 % (0-12); NEUTROPHILS % (MANUAL) 67 % (37-80); NORMAL RBCS PRESENT
[2017-09-19] MEDS ORDERED: ACETAMINOPHEN 325 MG ONE (11:04)
[2017-09-19 11:48] LABS: APPEARANCE,URINE Clear; BILIRUBIN,URINE NEGATIVE (NEGATIVE); COLOR,URINE Yellow; GLUCOSE, URINE (UA) NEGATIVE (NEGATIVE); KETONES,URINE NEGATIVE (NEGATIVE); LEUKOCYTE ESTERASE ,URINE NEGATIVE (NEGATIVE); NITRATE,URINE NEGATIVE (NEGATIVE); OCCULT BLOOD,URINE NEGATIVE (NEG-TRACE); UROBILINOGEN,URINE 0.2 (0.2-1.0 EU)
[2017-09-19 11:56] LABS: BACTERIA RARE (< 1+); CRYSTALS NEGATIVE (0-3 AVE/HPF); EPITHELIAL CELLS 0-2 (SQUAMOUS); RBC,URINE 0-2 (0-3AV/HPF); WBC,URINE 0-2 (0-5AV/HPF)
[2017-09-19] MEDS ORDERED: BISACODYL 10 MG SUP PR PRN (12:49)
[2017-09-19] MEDS ORDERED: TRAMADOL HYDROCHLORIDE 50 MG TAB PO PRN (12:49)
[2017-09-19] MEDS ORDERED: NITROGLYCERIN 0.4 MG TAB SL PRN (12:49)
[2017-09-19] MEDS ORDERED: MAGNESIUM HYDROXIDE 30 ML SUS PO PRN (12:49)
[2017-09-19] MEDS ORDERED: PROCHLORPERAZINE 25 MG PR PRN (12:49)
[2017-09-19] MEDS: SODIUM CHLORIDE 0.9% 1000ML 1,000 ML IV SCH ×2 (13:45→21:00)
[2017-09-19] MEDS ORDERED: PRAMIPEXOLE DIHYDROCHLORIDE 0.125 MG PO PRN (14:00)
[2017-09-19 14:19] LABS: ABG PH 7.5 (7.35-7.45)
[2017-09-19] MEDS: ENOXAPARIN 80 MG SOL SC SCH (14:25)
[2017-09-19] MEDS: CARBIDOPA/LEVODOPA 25/100 TAB PO SCH ×2 (16:07→21:32)
[2017-09-19] MEDS ORDERED: MORPHINE SULFATE 10 MG/ML SOL IV PRN (20:04)
[2017-09-19] MEDS ORDERED: FUROSEMIDE 40 MG SOL IV SCH (20:15)
[2017-09-19] MEDS ORDERED: QUETIAPINE FUMARATE 25 MG TAB PO SCH (21:00)
[2017-09-19] MEDS ORDERED: SERTRALINE HYDROCHLORIDE 50 MG TAB PO SCH (21:00)
[2017-09-19] MEDS: FAMOTIDINE 20 MG TAB PO SCH (21:29)
[2017-09-19] MEDS: GABAPENTIN 300 MG CAP PO SCH (21:29)
[2017-09-19] MEDS: DIVALPROEX ECC 125 MG ECC PO SCH (21:31)
[2017-09-19] MEDS: MEMANTINE HYDROCHLORIDE 10 MG TAB PO SCH (21:31)
[2017-09-19] MEDS: MORPHINE SULFATE 10 MG/ML SOL IV PRN (21:57)
[2017-09-20 08:10] LABS: HEMATOCRIT 48 % (39-53); HEMOGLOBIN 14.9 gm/dl (13.5-17.7); MEAN CORPUSCULAR HEMOGLOBIN 30.6 pg (27.0-32.0); MEAN CORPUSCULAR HGB CONC 31.2 gm/dl (32.0-36.0); MEAN CORPUSCULAR VOLUME 98 fL (80-100)
[2017-09-20 08:14] LABS: CREATININE 1.89 mg/dl (0.80-1.30); POTASSIUM 3.3 mMol/L (3.5-5.1)
[2017-09-20 08:19] LABS: CARBON DIOXIDE 38.8 mEq/L (21-32)
[2017-09-20 08:29] LABS: NEUTROPHILS % (MANUAL) 45 % (37-80)
[2017-09-20 08:30] LABS: BAND NEUTROPHILS % (MANUAL) 36 %; BASOPHILS % (MANUAL) 0 % (0-3); EOSINOPHILS % (MANUAL) 0 % (0-9); LYMPHOCYTES % (MANUAL) 14 % (10-50); MONOCYTES % (MANUAL) 5 % (0-12); NORMAL RBCS PRESENT
[2017-09-20] MEDS: CARBIDOPA/LEVODOPA 25/100 TAB PO SCH ×3 (08:39→17:28)
[2017-09-20] MEDS: DIVALPROEX ECC 125 MG ECC PO SCH (08:39)
[2017-09-20] MEDS: ACETAMINOPHEN 500 MG 500 MG TAB PO PRN ×2 (08:39→15:18)
[2017-09-20] MEDS: MEMANTINE HYDROCHLORIDE 10 MG TAB PO SCH (08:39)
[2017-09-20] MEDS: GABAPENTIN 300 MG CAP PO SCH (08:40)
[2017-09-20] MEDS: FAMOTIDINE 20 MG TAB PO SCH (08:41)
[2017-09-20] MEDS ORDERED: DEXTROSE/SALINE 0.45/KCL 20MEQ 1,000 ML/1,000 ML SOL IV SCH ×2 (08:45→17:48)
[2017-09-20] MEDS ORDERED: ASPIRIN EC 81 MG PO SCH (09:00)
[2017-09-20] MEDS ORDERED: PANTOPRAZOLE SODIUM 40 MG ECT PO SCH (09:00)
[2017-09-20] MEDS ORDERED: POTASSIUM CHLORIDE 10 MEQ CAPSULE PO SCH (09:00)
[2017-09-20] MEDS ORDERED: CLOPIDOGREL 75 MG TAB PO SCH (09:00)
[2017-09-20] MEDS ORDERED: ENOXAPARIN 80 MG SOL SC SCH (09:00)
[2017-09-20] MEDS ORDERED: FUROSEMIDE 40 MG TAB PO SCH (09:00)
[2017-09-20] MEDS ORDERED: METOPROLOL SUCCINATE 25 MG TAB.ER.24H PO SCH (09:00)
[2017-09-20] MEDS: ALBUTEROL/IPRATROPIUM 1 VIAL SOL INH PRN ×2 (09:02→13:36)
[2017-09-20] MEDS: ENOXAPARIN 80 MG SOL SC SCH (09:19)
[2017-09-20] MEDS ORDERED: LEVOFLOXACIN 500 MG (PREMIX) 500 MG/100 ML SOL IV ONE (09:33)
[2017-09-20] MEDS ORDERED: POTASSIUM CHLORIDE 2 MEQ/ML 40 MEQ, LIDOCAINE HCL 1% MDV 2 ML in SODIUM CHLORIDE 0.9% 5... IV ONE (09:34)
[2017-09-20] MEDS ORDERED: POTASSIUM CHLORIDE 2 MEQ/ML SOL IV ONE (09:40)
[2017-09-20] MEDS ORDERED: LIDOCAINE HCL 1% MPF 30 SOL ONE (09:42)
[2017-09-20] MEDS ORDERED: FUROSEMIDE 20mg SOL IV SCH (09:45)
[2017-09-20] MEDS ORDERED: MORPHINE SULFATE 10 MG/ML SOL ONE ×4 (10:09→18:10)
[2017-09-20] MEDS: MORPHINE SULFATE 10 MG/ML SOL IV PRN ×4 (10:12→18:12)
[2017-09-20] MEDS: ALBUTEROL/IPRATROPIUM 1 VIAL SOL INH SCH ×3 (12:47→21:46)
[2017-09-20] MEDS ORDERED: FUROSEMIDE 20mg SOL IV ONE (14:09)
[2017-09-20] MEDS ORDERED: SODIUM CHLORIDE 0.9% FLUSH 10 ML SOL IV PRN (14:10)
[2017-09-20] MEDS ORDERED: LORAZEPAM 2 MG/ML SOL IV PRN (17:47)
[2017-09-20] MEDS ORDERED: SCOPOLAMINE 1.5MG PATCH TD SCH (18:00)
[2017-09-20 22:12] VITALS: BP 77/44
[2017-09-21] MEDS ORDERED: MORPHINE SULFATE 10 MG/ML SOL ONE ×3 (00:49→03:58)
[2017-09-21] MEDS: MORPHINE SULFATE 10 MG/ML SOL IV PRN ×3 (00:54→03:59)
[2017-09-21] MEDS ORDERED: ACETAMINOPHEN 650 MG SUP PR PRN (03:41)
[2017-09-21 04:09] VITALS: PULSE 118; RESP 28; TEMP 100.2; O2SAT 82
[2017-09-21] MEDS ORDERED: LEVOFLOXACIN 25 MG/ML 250 MG in SODIUM CHLORIDE 0.9% 50 ML 50 ML IV SCH (10:00)
== END 2017-09-21 04:25 | disposition expired | DRG 698 ==
LOC: ED 09:35 → ACUTE CARE 12:11 → UNDOADMIN 12:11 → ACUTE CARE 13:00
PROVIDERS: ADMIT Family Medicine; ATTEND Family Medicine
DX: N28.9 Disorder of kidney and ureter, unspecified (principal); J18.9 Pneumonia, unspecified organism; I82.492 Acute embolism and thrombosis of other specified deep vein of left lower extremity; F03.90 Unspecified dementia, unspecified severity, without behavioral disturbance, psychotic disturbance, mood disturbance, and anxiety; R06.02 Shortness of breath; E86.0 Dehydration; R79.1 Abnormal coagulation profile; I50.9 Heart failure, unspecified; G20 Parkinson's disease; Z86.73 Personal history of transient ischemic attack (TIA), and cerebral infarction without residual deficits; R50.9 Fever, unspecified; R09.02 Hypoxemia; R06.03 Acute respiratory distress
CPT/HCPCS: 36415; 36600; 71045; 80048; 80053; 81001; 82803; 83880; 84132; 84484; 85007; 85027; 85378; 85610; 85730; 87040; 93005; 94640; 94760; 96365; 96366; 99284; 99291; J1650; J1940; J1956; J2270; J3480; A6232; A9270; A9270-GY; J2001